=== PATIENT | male | born 1985 | race Two or more races ===

== ENCOUNTER 2016-12-22 23:51 | Emergency (ER) | payer SELFPAY ==
[~2016-12-22] VITALS: Ht 185.4 cm; Wt 99.8 kg
--- NOTE | 2016-12-23 00:16 | PHYS DOC ---
Past Medical History Past Medical History: Schizophrenia Additional Past Surgical Histo: ABD SURGERY Alcohol Use: None Drug Use: None Adult General Chief Complaint Chief Complaint: MANIC BEHAVIOR HPI HPI Patient is a 31 year old male presenting to the emergency department for evaluation of several complaints including hearing voices the government inserted chip in his head and he has a bomb in his left arm. Patient points to his left elbow where the explosive device is at. He denies suicidal or homicidal ideation and he admits that he is schizophrenic and has not been taking his medications. I asked him a question help put his finger in his ear and affect is if something is transmitting into his head. Review of Systems Review of Systems Constitutional: Denies fever or chills [] Eyes: Denies change in visual acuity, redness, or eye pain [] HENT: Denies nasal congestion or sore throat [] Respiratory: Denies cough or shortness of breath [] Cardiovascular: No additional information not addressed in HPI [] GI: Denies abdominal pain, nausea, vomiting, bloody stools or diarrhea [] : Denies dysuria or hematuria [] Musculoskeletal: Denies back pain or joint pain [] Integument: Denies rash or skin lesions [] Neurologic: Denies headache, focal weakness or sensory changes [] Current Medications Current Medications Current Medications Medications (Trade) Dose Ordered Sig/Andrei Start Time Stop Time Status Last Admin Dose Admin Olanzapine (ZyPREXA ZYDIS) 10 mg 1X ONCE 12/23/16 00:45 12/23/16 00:46 DC 12/23/16 00:45 10 MG Allergies Allergies Allergies Coded Allergies Type Severity Reaction Last Updated Verified niacin Allergy Unknown facial flushing 12/23/16 Yes Physical Exam Physical Exam Constitutional: Well developed, well nourished, no acute distress, non-toxic appearance. [] HENT: Normocephalic, atraumatic, bilateral external ears normal, oropharynx moist, no oral exudates, nose normal. [] Eyes: PERRLA, EOMI, conjunctiva normal, no discharge. [] Neck: Normal range of motion, no tenderness, supple, no stridor. [] Cardiovascular:Heart rate regular rhythm, no murmur [] Lungs & Thorax: Bilateral breath sounds clear to auscultation [] Abdomen: Bowel sounds normal, soft, no tenderness, no masses, no pulsatile masses. [] Skin: Warm, dry, no erythema, no rash. [] Back: No tenderness, no CVA tenderness. [] Extremities: No tenderness, no cyanosis, no clubbing, ROM intact, no edema. [] Neurologic: Alert and oriented X 3, normal motor function, normal sensory function, no focal deficits noted. [] Current Patient Data Vital Signs Vital Signs Date Time Temp Pulse Resp B/P (MAP) Pulse Ox O2 Delivery O2 Flow Rate FiO2 12/22/16 23:57 99.1 88 23 147/86 (106) 99 Room Air 99.1 EKG EKG [] Radiology/Procedures Radiology/Procedures Left elbow x-ray with no fracture dislocation or soft tissue abnormality. Course & Med Decision Making Course & Med Decision Making He said in order for us to check blood and for him to take a medication he wants an x-ray of his arm to ensure there is no explosive device in his arm. PACT team is here and is going to speak to him. Patient is refusing blood draw and to give urinalysis. Given he is not going to be placed and that he is medically stable this is not necessary. PACT team felt that he is not a danger to himself or others and I agree as he is stable from medical and psychiatric standpoint. He will need psychiatry follow-up as an outpatient as he is not on his medications he'll be discharged in stable condition. Dragon Disclaimer Dragon Disclaimer This electronic medical record was generated, in whole or in part, using a voice recognition dictation system. Departure Departure Impression: Primary Impression: Auditory hallucination Disposition: HOME, SELF-CARE Condition: STABLE Referrals: NO PCP (PCP) Patient Instructions: Hallucinations and Delusions SIVAN CUETO DO Dec 23, 2016 00:16
[2016-12-23 01:00] VITALS: BP 131/75
--- NOTE | 2016-12-23 07:20 | RAD ---
Left elbow radiograph 12/23/2016 at 0024 hours Indication: Elbow pain Comparison: None available Technique: 2 views of the left elbow are provided. Findings: Osseous structures are normal. There is no acute fracture or dislocation. No joint space narrowing. No soft tissue swelling. No osseous erosion or soft tissue gas. Bone mineralization is within normal limits. No elbow joint effusion. Impression: No acute fracture or dislocation.
== END 2016-12-23 01:15 | disposition home or self-care (01) ==
LOC: EDBD 23:51 → ER 23:51
DX: R44.0 Auditory hallucinations (principal); M25.522 Pain in left elbow; F20.9 Schizophrenia, unspecified; Z88.8 Allergy status to other drugs, medicaments and biological substances
CPT/HCPCS: 73070; 99284